=== PATIENT | female | born 1950 | race Caucasian/White ===

== ENCOUNTER → 2017-09-04 08:07 | Outpatient (CLI) | payer MEDICARE ==
[~2017-09-04 08:07] MED LIST: BUPROPION XL300 MG PO; CELEXA40 MG PO; DILAUDID2 MG PO; HYDROCODONE-APA1 TAB PO; LEVOTHYROXINE50 MCG PO; MORPHINE 44 MG/1 M1 IV; PROTONIX40 MG PO; REGLAN10 MG PO; ZANTAC150 MG
[2017-10-02 17:49] VITALS: BMI 34.5
== END | disposition home or self-care (01) ==
LOC: D.OPS 08:07 → D.RAD 10:00
DX: K21.9 Gastro-esophageal reflux disease without esophagitis (principal)

== ENCOUNTER 2017-10-02 12:00 | Day surgery (SDC) | payer MEDICARE ==
[2017-10-01 15:27] LABS: BASOPHILS 0.5 % (0-2); EOSINOPHILS 2.6 % (0-7); HEMATOCRIT 38.7 % (36.0-48.0); HEMOGLOBIN 12.2 g/dL (12-16); IMMATURE GRANULOCYTES 0.3 % (0-5); LYMPHOCYTES 30.1 % (15-50); MCH 25.6 pg (26.0-34.0); MCHC 31.5 g/dL (31.0-37.0); MCV 81.1 fL (80.0-100.0); MEAN PLATELET VOLUME 10.3 fL (7.4-10.4); MONOCYTES 9.1 % (2-11); NEUTROPHILS 57.4 % (40-80); PLATELET COUNT 185 10x3/uL (130-400); RBC 4.77 10x6/uL (4.00-5.40); RDW 21.2 % (11.5-14.5); WBC 6.3 10x3/uL (4.8-10.8)
[2017-10-01 15:41] LABS: CALC OSMOLALITY 279 mosm/kg (275-300); CALCIUM 8.2 mg/dL (8.5-10.1); CARBON DIOXIDE 26.8 mmol/L (21.0-32.0); CHLORIDE - SERUM 106 mmol/L (98-107); CREATININE - SERUM 0.8 mg/dL (0.6-1.3); GLUCOSE 133 mg/dL (74-106); POTASSIUM - SERUM 3.9 mmol/L (3.5-5.1); SODIUM 139 mmol/L (136-145); UREA NITROGEN 12 mg/dL (7-18); eGFR NON AFRICAN AMERICAN 76 mL/min (90-120)
[~2017-10-02] VITALS: Ht 170.2 cm; Wt 100.0 kg
--- NOTE | ~2017-10-02 | OP ---
PATIENT NAME: SHAKIRA MEJIA MEDICAL RECORD: [id number] :54 LOCATION:[facility] ADMISSION DATE: SURGEON: REJI BROOKE MD DATE OF OPERATION: 10/02/2017 PREOPERATIVE DIAGNOSES: 1. Gastroesophageal reflux disease. 2. Hiatal hernia. 3. Diabetes mellitus. 4. Coronary artery disease. 5. Hypothyroidism. 6. Arthritis. POSTOPERATIVE DIAGNOSES: 1. Gastroesophageal reflux disease. 2. Hiatal hernia. 3. Diabetes mellitus. 4. Coronary artery disease. 5. Hypothyroidism. 6. Arthritis. PROCEDURE: Laparoscopic Vasquez with hiatal hernia repair. SURGEON: Reji Brooke MD BOLT MAN: Georgia Aranda APRN REPORT OF PROCEDURE: The patient's abdomen was prepped and draped in sterile fashion. A Veress needle was inserted in the left upper quadrant and the abdomen was insufflated in the midline. A Visiport trocar 11 mm was inserted. We inspected the left upper quadrant and could not see the Veress needle because there was a large amount of fatty adhesions present to the anterior abdominal wall. A 5-mm trocar was placed in the epigastrium and another 5-mm trocar was placed in the right lateral subcostal region. Using these, I was able to take down the adhesions from the anterior abdominal wall and could see the patient did have a hernia present in the left upper quadrant. This appeared to be an old incisional hernia defect that was fat containing. It looked to be about 3 cm in greatest diameter. We got all these adhesions down. I was able to place a 12-mm trocar in the left subcostal region and a final 5-mm trocar in the left lateral abdomen. The left lobe of the liver was then elevated. The stomach was inspected and we could see that the patient did have a hiatal hernia with about 3-4 cm of the stomach projecting up into the thoracic cavity. We started on the lesser curvature of the stomach and took down the lesser omentum using Harmonic scalpel. This was continued up to the right side of the right charles. We then dissected into the thoracic cavity on the edge of the right side of the right charles until we were able to take down the adhesions on this portion of the esophagus. Once we had this completely freed up anteriorly and posteriorly, then we moved to the greater curvature of the stomach and took down the short gastrics using Harmonic scalpel. This was continued up to the left side of the right charles and into the thoracic cavity. Eventually, we were able to dissect out completely and had a 360 degree inspection of the distal esophagus. Once we had the esophagus completely dissected free as possible, then about a centimeter of the esophagus would rest comfortably in the abdominal cavity without tension. The vagus nerves were visualized and appeared to be intact. We then reapproximated the esophageal hiatus with interrupted 0 Polydek times 3. The OPERATIVE REPORT [id number] SHAKIRA MEJIA patient's fundus was then pulled posteriorly for 360-degree posterior wrap and sutured into place with interrupted 0 Polydek times 3 with the top and the bottom suture incorporating a bite of the esophagus. The wrap appeared to be in good place with no signs of bleeding and it did not appear to be too tight. The indwelling orogastric tube was removed easily. We inspected the abdomen and saw no signs of any active bleeding. The liver retractor was then removed, the 12 mm left subcostal trocar site. The incision was then closed with a Jose-Dayana suture passer device. The ports and insufflation were then removed and the wounds were then closed with subcutaneous 5-0 Monocryl. A total of 10 mL of 0.25% Marcaine with epinephrine was infused into the surrounding tissues and the wounds were dressed appropriately. COMPLICATIONS: None. CONDITION: Stable. ANESTHESIA: General endotracheal and local. BLOOD LOSS: Minimal. TRANSINT:[id number] Voice Confirmation ID: [id number] DOCUMENT ID: [id number] REJI BROOKE MD at 1418 CC: OCTAVIO ROGER DO and NIDHI KURTZ DO [id number] DICTATION DATE: 10/02/17 1632 RIBB[facility] WINDER: 10/02/17 1810 [facility] 10/03/17 [facility] [address] [id number]
[~2017-10-02 12:00] MED LIST changes: -DILAUDID2 MG PO; -HYDROCODONE-APA1 TAB PO; -MORPHINE 44 MG/1 M1 IV; -REGLAN10 MG PO
[2017-10-02 13:37] VITALS: BP 104/68; BMI 30.6
[2017-10-02] MEDS ORDERED: DILAUDID2 MG PO (16:24)
[2017-10-02] MEDS ORDERED: REGLAN10 MG PO (16:24)
[2017-10-02 17:41] VITALS: BP 122/70
[2017-10-02 17:49] VITALS: BP 122/70; Ht 170.2 cm; Wt 100.0 kg
[2017-10-02 20:29] VITALS: BP 95/66
[2017-10-03 00:21] VITALS: BP 120/70
[2017-10-03 04:06] VITALS: BP 110/68
[2017-10-03 05:53] LABS: BASOPHILS 0 % (0-2); EOSINOPHILS 0 % (0-7); HEMATOCRIT 38.3 % (36.0-48.0); HEMOGLOBIN 11.8 g/dL (12-16); IMMATURE GRANULOCYTES 0.2 % (0-5); LYMPHOCYTES 15.6 % (15-50); MCH 25.7 pg (26.0-34.0); MCHC 30.8 g/dL (31.0-37.0); MEAN PLATELET VOLUME 10.9 fL (7.4-10.4); MONOCYTES 6.5 % (2-11); NEUTROPHILS 77.7 % (40-80); PLATELET COUNT 199 10x3/uL (130-400); RDW 21.8 % (11.5-14.5)
[2017-10-03 06:05] LABS: MCV 83.3 fL (80.0-100.0); WBC 10.5 10x3/uL (4.8-10.8)
[2017-10-03 06:19] LABS: CALC OSMOLALITY 279 mosm/kg (275-300); CALCIUM 7.7 mg/dL (8.5-10.1); CARBON DIOXIDE 26.4 mmol/L (21.0-32.0); CHLORIDE - SERUM 106 mmol/L (98-107); CREATININE - SERUM 0.8 mg/dL (0.6-1.3); GLUCOSE 136 mg/dL (74-106); POTASSIUM - SERUM 4.4 mmol/L (3.5-5.1); SODIUM 139 mmol/L (136-145); UREA NITROGEN 12 mg/dL (7-18); eGFR NON AFRICAN AMERICAN 76 mL/min (90-120)
[2017-10-03 09:23] VITALS: BP 128/65
[2017-10-03 12:44] VITALS: BP 123/68
[2017-10-03] MEDS ORDERED: MORPHINE 44 MG/1 M1 IV (16:40)
[2017-10-03] MEDS ORDERED: HYDROCODONE-APA1 TAB PO (16:52)
[2017-10-03 17:00] VITALS: BP 131/80
== END 2017-10-03 17:15 | disposition home or self-care (01) ==
LOC: D.MS 12:00 → D.OPS 12:00 → D.MS 17:33 → D.OPS 10-03 17:15
PROVIDERS: Surgery
DX: K21.9 Gastro-esophageal reflux disease without esophagitis (principal); K44.9 Diaphragmatic hernia without obstruction or gangrene; E11.9 Type 2 diabetes mellitus without complications; I25.10 Atherosclerotic heart disease of native coronary artery without angina pectoris; E03.9 Hypothyroidism, unspecified; M19.90 Unspecified osteoarthritis, unspecified site; Z01.812 Encounter for preprocedural laboratory examination

== ENCOUNTER → 2018-01-27 08:41 | Outpatient (CLI) | payer MEDICARE ==
[~2018-01-27] VITALS: Ht 170.2 cm; Wt 83.0 kg
[~2018-01-27 08:41] MED LIST changes: +DILAUDID2 MG PO; +HYDROCODONE-APA1 TAB PO; +MORPHINE 44 MG/1 M1 IV; +REGLAN10 MG PO
[2018-01-27 10:18] VITALS: Ht 170.2 cm; Wt 83.0 kg
== END | disposition home or self-care (01) ==
LOC: D.FANS 08:41
DX: E16.2 Hypoglycemia, unspecified (principal)

== ENCOUNTER → 2018-04-06 09:00 | Outpatient (CLI) | payer MEDICARE ==
[2018-01-27 10:18] VITALS: BMI 28.6
--- NOTE | 2018-04-08 16:39 | ST ---
PATIENT:SHAKIRA MEJIA MEDICAL RECORD: [id number] SEX: F LOCATION:[facility] ORDER #: ADMISSION DATE: 04/06/18 AGE OF PATIENT: 68 REFERRING PHYSICIAN: INTERPRETING PHYSICIAN: BAUDILIO FREEMAN MD DATE OF SERVICE: 04/06/2018 PROCEDURE: Nuclear stress test. INDICATION: Angina, abnormal ECG, hypertension. She was exercised on standard Lexiscan protocol with 33 mCi of sestamibi injected at peak stress, 10 mCi were used previously for rest images. FINDINGS: Gated SPECT reveals an excellent ejection fraction at 70% with good wall motion thickening and brightness throughout the segments. SPECT IMAGING: Cardiolite was used for a myocardial perfusion agent. There is homogeneous uptake throughout all segments at rest and stress with no evidence of inducible ischemia or previous infarction. OVERALL IMPRESSION: This is a normal rest-stress Cardiolite with no evidence of inducible ischemia or previous infarction. A gated SPECT reveals preserved ejection fraction greater than 60%. At this time I would evaluate noncardiac etiology of chest pain. TRANSINT:[id number] Voice Confirmation ID: [id number] DOCUMENT ID: [id number] BAUDILIO FREEMAN MD at 1639 CC: NIDHI KURTZ DO [id number] DICTATION DATE: 04/07/18 1605 [facility] ASSISTANT: 04/08/18 0734 [facility] CLI 04/06/18 [id number] [place] [address]
== END | disposition home or self-care (01) ==
LOC: D.HCCARDIO 04-01 12:30
DX: I20.9 Angina pectoris, unspecified (principal); R94.31 Abnormal electrocardiogram [ECG] [EKG]; I10 Essential (primary) hypertension

== ENCOUNTER → 2018-11-12 09:01 | Outpatient (CLI) | payer MEDICARE ==
[2018-01-27 10:18] VITALS: BMI 28.6
[~2018-11-12 09:01] MED LIST changes: +BAYER CHEWABLE81 MG PO; +MERIBIN5 MG PO; +PEPCID AC20 MG PO; +PROZAC10 MG PO; +ULTRAM50 MG PO; +ZOFRAN4 MG PO
== END | disposition home or self-care (01) ==
LOC: D.RAD 09:01
PROVIDERS: ATTEND Surgery
DX: R11.2 Nausea with vomiting, unspecified (principal)

== ENCOUNTER 2018-11-14 15:37 | Emergency (ER) | payer MEDICARE ==
[~2018-11-14] VITALS: Ht 170.2 cm; Wt 83.6 kg
[~2018-11-14 15:37] MED LIST changes: -BAYER CHEWABLE81 MG PO; -MERIBIN5 MG PO; -PEPCID AC20 MG PO; -PROZAC10 MG PO; -ULTRAM50 MG PO; -ZOFRAN4 MG PO
[2018-11-14 15:43] VITALS: Ht 170.2 cm; Wt 83.6 kg
[2018-11-14] MEDS ORDERED: PROZAC10 MG PO (15:46)
[2018-11-14 16:17] LABS: BASOPHILS 0.2 % (0-2); EOSINOPHILS 1.2 % (0-7); HEMATOCRIT 45.6 % (36.0-48.0); HEMOGLOBIN 15.7 g/dL (12-16); IMMATURE GRANULOCYTES 0.2 % (0-5); LYMPHOCYTES 19.3 % (15-50); MCH 31.7 pg (26.0-34.0); MCHC 34.4 g/dL (31.0-37.0); MCV 92.1 fL (80.0-100.0); MEAN PLATELET VOLUME 10.9 fL (7.4-10.4); MONOCYTES 7.4 % (2-11); NEUTROPHILS 71.7 % (40-80); PLATELET COUNT 221 10x3/uL (130-400); RBC 4.95 10x6/uL (4.00-5.40); RDW 12.7 % (11.5-14.5); WBC 12.1 10x3/uL (4.8-10.8)
[2018-11-14 16:19] LABS: APPEARANCE CLEAR (CLEAR); BILIRUBIN NEGATIVE (NEGATIVE); COLOR YELLOW (YELLOW); GLUCOSE NEGATIVE (NEGATIVE); KETONE NEGATIVE (NEGATIVE); NITRITE NEGATIVE (NEGATIVE); PROTEIN NEGATIVE (NEGATIVE); SPECIFIC GRAVITY 1.025 (1.005-1.020); UROBILINOGEN NORMAL (NORMAL)
[2018-11-14 16:33] LABS: ALBUMIN 3.9 g/dL (3.4-5.0); ANION GAP 12.8 mmol/L (8-16); BILIRUBIN - TOTAL 0.41 mg/dL (0.2-1.3); CARBON DIOXIDE 29.9 mmol/L (21.0-32.0); CREATININE - SERUM 0.9 mg/dL (0.6-1.3); POTASSIUM - SERUM 4.7 mmol/L (3.5-5.1); PROTEIN - SERUM 7.4 g/dL (6.4-8.2)
--- NOTE | 2018-11-14 17:37 | NUR ---
DR. MCCLAIN NOTIFIED AND REVIEWED PT'S BEHAVIOR AND ASSESSMENT RESULTS. PT IS A LOW RISK PER DR. TUCKER. DR. TUCKER STATED TO GIVE RESOURCES TO PT AT TIME OF DISCHARGE. NO FURTHER ORDERS AT THIS TIME. RESOURCES REVIEWED WITH PT AND SHE VERBALIZED UNDERSTANDING.
[2018-11-14] MEDS ORDERED: ZOFRAN4 MG PO (19:05)
[2018-11-14 19:22] VITALS: BP 118/68
[2018-11-20] MEDS ORDERED: MERIBIN5 MG PO (14:42)
[2018-11-20] MEDS ORDERED: BAYER CHEWABLE81 MG PO (14:42)
== END 2018-11-14 19:24 | disposition home or self-care (01) ==
LOC: D.ER 15:37
PROVIDERS: Emergency Medicine
DX: R10.9 Unspecified abdominal pain (principal); K44.9 Diaphragmatic hernia without obstruction or gangrene; R11.2 Nausea with vomiting, unspecified

== ENCOUNTER 2018-11-24 05:43 | Day surgery (SDC) | payer MEDICARE ==
[~2018-11-24] VITALS: Ht 348 cm; Wt 87.5 kg
[~2018-11-24 05:43] MED LIST changes: +BAYER CHEWABLE81 MG PO; +MERIBIN5 MG PO; +PROZAC10 MG PO; +ZOFRAN4 MG PO
[2018-11-24 06:47] LABS: ANION GAP 12.4 mmol/L (8-16); CALCIUM 8.9 mg/dL (8.5-10.1); CARBON DIOXIDE 30.7 mmol/L (21.0-32.0); POTASSIUM - SERUM 4.1 mmol/L (3.5-5.1)
[2018-11-24 06:56] LABS: BASOPHILS 0.4 % (0-2); HEMATOCRIT 45.2 % (36.0-48.0); HEMOGLOBIN 15.5 g/dL (12-16); IMMATURE GRANULOCYTES 0.1 % (0-5); LYMPHOCYTES 35.3 % (15-50); MCH 31.1 pg (26.0-34.0); MCHC 34.3 g/dL (31.0-37.0); MCV 90.8 fL (80.0-100.0); MEAN PLATELET VOLUME 10.9 fL (7.4-10.4); MONOCYTES 7.5 % (2-11); NEUTROPHILS 54.7 % (40-80); PLATELET COUNT 205 10x3/uL (130-400); RBC 4.98 10x6/uL (4.00-5.40); RDW 12.7 % (11.5-14.5); WBC 7.9 10x3/uL (4.8-10.8)
[2018-11-24 08:05] VITALS: BP 137/82; Ht 348 cm; Wt 87.5 kg
[2018-11-24] MEDS ORDERED: ULTRAM50 MG PO (09:32)
[2018-11-24] MEDS ORDERED: PEPCID AC20 MG PO (09:33)
--- NOTE | 2018-11-24 11:07 | NUR ---
1107 O2 SAT AT 97% ON BNC 4L/MIN. PT MORE AWAKE. DECREASED BNC TO 2L/MIN.
--- NOTE | 2018-11-24 14:33 | NUR ---
1129 [facility] 2L TURNED OFF
--- NOTE | 2018-11-24 14:34 | NUR ---
1203 PT C/O PAIN TO FLAVIA SMITH RN AND WAS MEDICATED WITH TRAMADOL. PAIN LEVEL WAS 3 OUT OF 10.
--- NOTE | 2018-11-24 14:35 | NUR ---
1235 PT UP TO BR WITH ASSISTANCE TO VOID BUT WAS NOT ABLE TO VOID. PT RETURNED TO BED WITHOUT ASSISTANCE. INCREASED IV FLUIDS. PT FEELS LIKE SHE IS DEHYDRATED DUE TO NOT DRINKING MUCH YESTERDAY.
--- NOTE | 2018-11-24 14:38 | NUR ---
1330 PT VOIDED WITHOUT DIFFICULTY AFTER GETTING IV FLUIDS AND DRINKING FLUIDS. 1338 IV DC'D. CATHETER TIP INTACT. NO BLEEDING AT SITE. BANDAID APPLIED.
--- NOTE | 2018-12-08 10:07 | OP ---
PATIENT NAME: SHAKIRA MEJIA MEDICAL RECORD: [id number] :54 LOCATION:[facility] ADMISSION DATE: SURGEON: REJI BROOKE MD DATE OF OPERATION: 11/24/2018 PREOPERATIVE DIAGNOSES: 1. Ventral incisional hernia. 2. Nausea and vomiting. 3. Diabetes mellitus. 4. Coronary artery disease with history of myocardial infarction. 5. Hypothyroidism. POSTOPERATIVE DIAGNOSES: 1. Ventral incisional hernia. 2. Nausea and vomiting. 3. Diabetes mellitus. 4. Coronary artery disease with history of myocardial infarction. 5. Hypothyroidism. PROCEDURE: 1. Ventral hernia repair with 6.4 cm Proceed mesh. 2. EGD with biopsy. SURGEON: Reji Brooke MD REPORT OF PROCEDURE: The patient's abdomen was prepped and draped in sterile fashion. The patient had an oblique scar that was quite wide in the left upper quadrant. I went ahead and just excised this scar and came through the subcutaneous tissues using electrocautery. Upon doing this, we encountered a hernia defect, which was fat containing. We freed up the edges of the hernia defect and removed the hernia sac down to the fascia. The hernia defect was 3 cm in greatest diameter. We freed up the fascia above and below and then inserted a 6.4 cm Proceed mesh in an underlay fashion. This was sutured down on all 4 sides using interrupted 0 Prolenes. The wound was then irrigated out with normal saline. We reapproximated the fascia longitudinally over the mesh using running 0 Vicryls. We inspected one last time to assure there was no sign of any bleeding, which there was none. The subcutaneous tissues were reapproximated with interrupted 3-0 Vicryl and the skin was closed with running subcutaneous 5-0 Monocryl. A total of 10 mL of 0.25% Marcaine with epinephrine was infused into the surrounding tissues and the wound was dressed appropriately. We then advanced an Olympus endoscope through the mouth and esophagus. We passed through the stomach and easily into the small bowel. In the second portion of the duodenum, there were no masses or lesions present. As we pulled back, no ulcerations were visible. As we pulled into the stomach, we could see there was some inflammation on the distal aspect of the stomach in the antrum and pyloric region. There was also some bilious material that was present in the stomach. A biopsy was taken of the antrum of the stomach and then sent off for permanent. Retroflexed view showed that the patient had an intact Vasquez wrap, which was tight around the endoscopy. The patient had a lot of retained material in the stomach that did not appear to be food contents, but it was more of a white frothy material. It was layered out across the tissues. I was unsure if this was maybe a preoperative medication given or not. The stomach had no masses, lesions or ulcerations present, but only with evidence of gastritis. We then pulled back into the distal esophagus. There was no sign of any ulcerations or lesions present there. A biopsy was taken on the distal OPERATIVE REPORT [id number] JACKIE,SHAKIRA third of the esophagus and sent off for permanent specimen. At this point, the insufflation was removed. We then slowly pulled the scope back through the esophagus and saw no evidence of any ulcerations, lesions or strictures. COMPLICATIONS: None. CONDITION: Stable. ANESTHESIA: General endotracheal and local. BLOOD LOSS: Minimal. TRANSINT:[id number] Voice Confirmation ID: [id number] DOCUMENT ID: [id number] REJI BROOKE MD at 1007 CC: OCTAVIO ROGER DO [id number] DICTATION DATE: 11/24/18 0938 PUBLIC HEALTH PHYSICIAN: 11/24/18 1030 [facility] 11/24/18 [facility] [address] [place] [address]
== END 2018-11-24 13:54 | disposition home or self-care (01) ==
LOC: D.OPS 05:43 → D.PAN 08:15 → D.OPS 08:15
PROVIDERS: ATTEND Surgery
DX: K43.2 Incisional hernia without obstruction or gangrene (principal); K21.9 Gastro-esophageal reflux disease without esophagitis; E11.9 Type 2 diabetes mellitus without complications; I25.10 Atherosclerotic heart disease of native coronary artery without angina pectoris; E03.9 Hypothyroidism, unspecified

== ENCOUNTER → 2019-06-08 09:18 | Outpatient (CLI) | payer MEDICARE ==
[~2019-06-08 09:18] MED LIST changes: +PEPCID AC20 MG PO; +ULTRAM50 MG PO
--- NOTE | 2019-06-09 13:47 | EC ---
PATIENT:SHAKIRA MEJIA DATE OF SERVICE: 06/08/19 SEX: F MEDICAL RECORD: [id number] DATE OF : 54 LOCATION:[facility] AGE OF PATIENT: 69 ADMISSION DATE: 06/08/19 REFERRING PHYSICIAN: INTERPRETING PHYSICIAN: AMI INFANTE MD ECHOCARDIOGRAM REPORT ECHO CHARGES 4 ECHO COMPLETE Date: 06/08/19 CLINICAL DIAGNOSIS: PALPITATIONS/ARRHYTHMIAS/SVT/ ANGINA/CARTWRIGHT/ABNORMAL EKG/MURMUR ECHOCARDIOGRAPHIC MEASUREMENTS (adult normal given) AC root (d.<3.7cm) 3.3 cm LV Septum d (<1.2 cm> 1.1 cm Valve Excursion 2.0 cm LV Septum (systole) 1.8 cm Left Atria (s.<4.0cm> 4.2 cm LVPW d(<1.2cm) 1.1 cm RV (d.<2.3cm) 2.0 cm LVPW (sytole) 1.9 cm LV diastole(<5.6CM) 4.5 cm MV E-F(>70mm/sec) cm LV systole 2.5 cm LVOT Diameter 1.9 cm MV exc.(>10mm) cm Est.ejection fraction (50-75%) % DOPPLER: LVIT cm/sec A 66.0 cm/sec E 75.0 cm/sec LA cm/sec RVSP 23.0 mmHg LVOT 85.0 cm/sec AOP1/2T m/s Asc. Ao 142 cm/sec RVOT 54.0 cm/sec RA cm/sec PA 98.0 cm/sec AV Gradient Peak 8.0 mmHg AV Mean 4.3 mmHg AV Area 1.8 cm MV Gradient Peak 2.8 mmHg MV Mean 0.82 mmHg MV Area cm COMMENTS: OP - HC Tower Equipment Repairer: 1 YONI VINCENTOE Service Administrator: 3 Dr. Lee TAPE# PACS Pericardial Effusion N DATE OF SERVICE: Adequate 2D echo, color flow imaging, spectral Doppler, and M-Mode No LVH. LV internal dimensions are normal. Wall motion is normal. EF is greater than or equal to 55%. Aortic valve is tricuspid. No evidence of stenosis by Doppler interrogation. Left atrium is mildly dilated at 4.2 cm. Mitral valve shows no prolapse. Mild MR. Right-sided chambers are grossly normal. Trace TR. ECHOCARDIOGRAM REPORT [id number] SHAKIRA MEJIA TRANSINT:[id number] Voice Confirmation ID: [id number] DOCUMENT ID: [id number] AMI INFANTE MD at 1347 CC: [id number] DICTATION DATE: 06/09/19 1035 RADIO STATION MANAGER: 06/09/19 1345 [facility] CLI 06/08/19 [id number] [place] [id number]
== END | disposition home or self-care (01) ==
LOC: D.HCCARDIO 09:18
PROVIDERS: ATTEND Internal Medicine Cardiovascular Disease
DX: R07.89 Other chest pain (principal); R01.1 Cardiac murmur, unspecified

== ENCOUNTER 2019-07-13 11:03 | Outpatient (CLI) | payer MEDICARE ==
[~2019-07-13] VITALS: Ht 348 cm; Wt 87.4 kg
--- NOTE | ~2019-07-13 | HEMODYNAMI ---
PATIENT:SHAKIRA MEJIA MEDICAL RECORD: [id number] : 54 LOCATION:[facility] ADMISSION DATE: 07/13/19 Generatedon:07/13/201912:55 Patient name: SHAKIRA MEJIA Patient #: [id number] SSN: [id number] : 1950 Date of study: 07/13/2019 Page: Of Hemodynamic Procedure Report Patient Data Patient Demographics Procedure consent was obtained First Name: SHAKIRA Gender: Female Last Name: JACKIE : 1950 Patient #: [id number] Age: 69 year(s) Race: SSN: [id number] Additional ID: [id number] Contact details Address: [address] [place] [address] State: [place] City: [place] Zip code: [address] Past Medical History Allergies Allergen Reaction Date Comments Reported Other allergy 07/13/2019 CODEINE Admission Admission Data Admission Date: 07/13/2019 Admission Time: 11:03 Arrival Date: 07/13/2019 Arrival Time: 0:00 Insurance Payor: Medicare [facility] #: [id number] Height (in.): 75.59 BSA: 2.17 (m2) Height (cm.): 192 BMI: 23.6 (kg/m2) Weight (lbs.): 191.8 Weight (kg.): 87 Lab Results Lab Result Date: 07/13/2019 Lab Result Time: 0:00 Biochemistry Name Units Result Min Max BUN mg/dl 17 --(---*)-- 7 18 Creatinine mg/dl 0.9 --(-*--)-- 0.6 1.3 eGFR ml/min 66 *-(----)-- 90 120 NONAFRICAN CBC Name Units Result Min Max Hematocrit % 45.7 --(-*--)-- 42 54 Hemoglobin g/dl 14.7 --(-*--)-- 13.5 17.5 Procedure Procedure Types Cath Procedure Diagnostic Procedure C [facility] w/Coronaries Sedation Charges Moderate Sedation up to 15 minutes PCI Procedure Coronary Stent Coronary Stent Initial Hemochron ACT Test Procedure Description Procedure Date Procedure Date: 07/13/2019 Procedure Start Time: 12:32 Procedure End Time: 12:52 Procedure Staff Name Function Logan Cosme MD Performing Physician Rain Huertas RT Monitor Miriam Wing RN Nurse Holly Michaud RT Scrub Indication CAD Procedure Data Cath Procedure Fluoroscopy Diagnostic fluoroscopy Total fluoroscopy Time: 3.1 time: 3.1 min min Diagnostic fluoroscopy Total fluoroscopy dose: 570 dose: 570 mGy mGy Contrast Material Contrast Material Type Amount (ml) Isovue 300 80 Entry Location Entry Primary Successful Side Size Upsize Upsize Entry Closure Succes sful Closure Location (Fr) 1 (Fr) 2 (Fr) Remarks Device Remarks Femoral Right 5 Fr 6 Fr Exoseal artery Short Estimated blood loss: 10 ml Diagnostic catheters Device Type Used For End Catheter Placement MULTIPACK JL 4.0 5Fr Left Coronary catheter Angiography MULTIPACK 3DRC 5Fr Right Coronary catheter Angiography MULTIPACK Pigtail 5 Fr LV Angiography catheter Procedure Complications No complications Procedure Medications Medication Administration Route Dosage 0.9% NaCl I.V. 100 ml/hr Oxygen etCO2 Nasal cannula 2 l/min Lidocaine 2% added to field 20 Heparin Flush Bag added to field 2 bags (1000units/500ml NS) Versed I.V. 2 mg Fentanyl I.V. 50 mcg Fentanyl I.V. 50 mcg Heparin Bolus I.V. 5000 units Integrilin (Bolus I.V. 7.9 ml 2mg/ml) Plavix P.O. 600 mg Integrilin (Bolus wasted 2.1 ml 2mg/ml) Versed I.V. 2 mg Lopressor I.V. 5 mg Hemodynamics Rest BSA: 2.17 (m2) HGB: 14.7 (g/dl) O2 Consumption: Estimated: 183.62 (ml/min) O2 Co nsumption indexed: Estimated:84.62 (ml/min/m) Heart Rate: 48 (bpm) Pressure Samples Time Site Value (mmHg) Purpose Heart Use Rate(bpm) 12:38 LV 170/7,14 Snapshot 98 Gradients Valve Time Site Site Mean SEP/DFP Peak To Heart Use 1 2 (mmHg) (sec/min) Peak Rate (mmHg) (bpm) Aortic 12:38 LV AO 93 Snapshots Pre Cath Intra NCS Post Cath Vital Signs Time Heart Resp SPO2 etCO2 NIBP (mmHg) Rhythm Pain Sedation Rate (ipm) (%) (mmHg) Status Level (bpm) 12:20:20 78 12 98 24 135/87(121) NSR 0 (11) 10(A) , No pain 12:25:19 84 15 97 21 Measuring NSR 0 (11) 10(A) , No pain 12:25:21 82 15 98 21 155/94(134) NSR 0 (11) 10(A) , No pain 12:29:35 81 15 98 16.5 151/93(130) NSR 0 (11) 10(A) , No pain 12:33:49 84 18 98 10.5 156/91(127) NSR 0 (11) 10(A) , No pain 12:38:03 96 17 97 9 173/97(138) NSR 0 (11) 10(A) , No pain 12:41:44 94 22 96 10.5 138/99(127) NSR 0 (11) 10(A) , No pain 12:45:54 72 18 98 19.5 128/80(102) NSR 0 (11) 10(A) , No pain 12:50:49 76 9 98 37.6 145/88(134) NSR 0 (11) 10(A) , No pain Medications Time Medication Route Dose Verified Delivered Reason Notes Effectiveness by by 12:19:23 0.9% NaCl I.V. 100 Logan Brandta used for ml/hr Ba Maciej procedure MD COPE 12:19:29 Oxygen etCO2 2 Logan Brandta used for Nasal l/min [place] Maciej procedure cannula MD COPE 12:19:34 Lidocaine 2% added 20ml Logan Ford for local to vial [facility] anesthetic field MD LONGORIA 12:19:38 Heparin Flush added 2 Logan Ford used for Bag to bags [facility] procedure (1000units/500ml field MD LONGORIA NS) 12:29:40 Versed I.V. 2 mg Logan Rodriguezyla for sedation St Joel Wing MD RN 12:29:49 Fentanyl I.V. 50 Logan Miriam for sedation mcg St Joel Wing MD RN 12:34:06 Fentanyl I.V. 50 Logan Rodriguezyla for sedation mcg St Joel Wing MD RN 12:40:06 Heparin Bolus I.V. 5000 Logan Miriam for units St Joel Wing anticoagulation RN 12:40:14 Integrilin I.V. 7.9 Logan Miriam for (Bolus 2mg/ml) ml [facility] Joel Wing antiplatelet RN therapy 12:40:25 Plavix P.O. 600 Logan Rodriguezyla for mg [facility] Joel Wing antiplatelet RN therapy 12:40:34 Integrilin wasted 2.1 Logan Brandta for (Bolus 2mg/ml) ml [facility] Joel Wing antiplatelet RN therapy 12:41:41 Versed I.V. 2 mg Logan Miriam for sedation St Joel Wing MD RN 12:43:55 Lopressor I.V. 5 mg Logan Rodriguezyla Per physician St Joel Wing MD employee benefits insurance agent Log Time Note 11:53:29 Informed consent obtained and on chart 11:53:38 Arrival Date: 07/13/2019 12:00:00 AM 11:53:59 Insurance Payor : Medicare 11:55:08 Indication : CAD 11:58:04 Procedure Status Elective Heart Cath (OP). 11:58:37 Patient allergic to Other allergyCODEINE 12:03:59 Lab Result : eGFR NONAFRICAN 66 ml/min 12:03:59 Lab Result : Creatinine 0.9 mg/dl 12:03:59 Lab Result : BUN 17 mg/dl 12:03:59 Lab Result : Hematocrit 45.7 % 12:03:59 Lab Result : Hemoglobin 14.7 g/dl 12:04:41 Patient Weight : 191.8 lbs 12:05:18 Miriam Wing RN sent for patient. Start room use. 12:05:21 Time tracking: Regular hours (M-F 7:00 - 5:00) 12:05:29 Plan of Care:Hemodynamics will remain stable., Cardiac rhythm will remain stable., Comfort level will be maintained., Respiratory function will remain adequate., Patient/ family verbilizes understanding of procedure., Procedure tolerated without complication., Recovers from procedure without complications.. 12:05:44 Lab results completed and on chart. 12:06:14 Stress Test: yes; abnormal INFERIOR WALL 12:10:19 Patient received from Pre/Post Procedure Room to [facility] 2 Alert and oriented. Tansferred to table in Supine position. 12:10:21 Warm blankets applied, and luis armando hugger turned on for patient comfort. 12::23 Correct patient and procedure confirmed by team. 12:10:40 ECG and BP/O2 sat monitors applied to patient. 12:19:15 Vital chart was started 12::23 0.9% NaCl 100 ml/hr I.V. was administered by Miriam Wing RN; used for procedure; Verbal order read back and verified. 12:19:29 Oxygen 2 l/min etCO2 Nasal cannula was administered by Miriam Wing RN ; used for procedure; Verbal order read back and verified. 12:19:34 Lidocaine 2% 20ml vial added to field was administered by Logan Cosme MD; for local anesthetic; Verbal order read back and verified. 12:19:38 Heparin Flush Bag (1000units/500ml NS) 2 bags added to field was administered by Logan Cosme MD; used for procedure; Verbal order read back and verified. 12:21:29 Baseline sample Acquired. 12::38 Rhythm: sinus rhythm 12:21:42 Full Disclosure recording started 12:22:11 H&P Date Dictated: 07/13/2019 H&P Addendum completed by physician on day of procedure. (MUST COMPLETE FOR ALL OUTPATIENTS), New H&P dictated by physician.. 12:22:19 Is the patient allergic to Iodine/contrast media? No. 12:22:22 Was the patient premedicated? Yes 12:22:26 Is patient on blood thinner?No 12:22:30 Patient diabetic? No. 12:22:37 ----Pre-sedation anethsthesia assessment.---- 12:22:43 Previous problem with sedation/anesthesia? No ? 12:22:46 Snore? Yes 12:22:48 Sleep apnea? No 12:22:51 Deviated septum? Unknown 12:22:53 Opens mouth fully? Yes 12:22:55 Sticks out tongue? Yes 12:22:59 Airway obstruction? No ? 12:23:03 Dentures? No ? 12:23:09 - 12:23:13 Pre procedure: right dorsailis pedis pulse 1+ Palpable, but thready & weak; easily obliterated 12:23:23 IV patent on arrival in left forearm with 0.9% NaCl at [facility]. 12:23:35 Right groin area was prepped with chlora-prep and draped in sterile fashion 12:23:36 Alarms reviewed by R. N. 12:23:37 Sharps counted by scrub and verified by R.N. 12:23:47 Use device set Femoral Dx 12:23:49 ACIST Syringe (37007) opened to sterile field. 12:23:50 Bag Decanter (2002S) opened to sterile field. 12:23:51 Medline Cath Pack ([id number]) opened to sterile field. 12:23:52 ACIST Hand Control (47865) opened to sterile field. 12:23:53 ACIST Manifold (41154) opened to sterile field. 12:23:55 DIAGNOSTIC Multipack 5Fr catheter set ([id number]) opened to sterile field. 12:23:56 Tegaderm 4 x 4 (1626W) opened to sterile field. 12:23:58 SHEATH 5FR Kirkman (OTM071) opened to sterile field. 12:23:59 EMERALD Guide Wire (838-772) opened to sterile field. 12:28:12 Risk of Mortality: 0.1 12:28:15 Risk of blood transfusion: 0.1 12:28:20 Risk of ENMANUEL: 0.2 12:28:27 Physician arrived 12::28 --------ALL STOP TIME OUT------ 12:28:29 Final Timeout: patient, procedure, and site verified with staff and physician. All members of the team are in agreement. 12:28:36 Right groin site verified by team. 12:28:41 Fire Safety Assessment: A--An alcohol-based skin anteseptic being used preoperatively., C--Open oxygen or nitrous oxide is being used., D--An ESU, laser, or fiber-optic light is being used. 12:28:47 Physical assessment completed. ASA score P 2 - A patient with mild systemic disease as per Logan Cosme MD. 12:28:52 2) 60-89 Mildly reduced kidney function, and other findings (as for stage 1) point to kidney disease. 12:28:58 Maximum allowable contrast dose (3.7 X eGFR X 0.75)183 ml. 12:29:08 Sedation plan: IV Moderate Sedation Medication:Versed, Fentanyl 12::40 Versed 2 mg I.V. was administered by Miriam Wing RN; for sedation; Verbal order read back and verified. 12::49 Fentanyl 50 mcg I.V. was administered by Miriam Wing RN; for sedation ; Verbal order read back and verified. 12:30:53 Patient Height : 75.59 inches 12:32:05 Procedure started. 12:32:28 RAIN NOTIFIED PATIENT PROCEDURE STARTED. 12:32:34 Local anesthetic to right femoral artery with Lidocaine 2% by Logan Maldonado MD.INITIAL ACCESS ONLY 12:33:59 A 5 Fr sheath was inserted into the Right Femoral artery 12:34:06 Fentanyl 50 mcg I.V. was administered by Miriam Wing RN; for sedation ; Verbal order read back and verified. 12:34:33 A MULTIPACK JL 4.0 5Fr catheter was advanced over the wire and used for Left Coronary Angiography. 12:35:05 LCA angiography performed. 12:35:13 Injector settings: Ml/sec: 3, Volume: 6, 12:35:51 Zero performed for pressure channel P1 12:36:00 Catheter removed. 12:36:08 A MULTIPACK 3DRC 5Fr catheter was advanced over the wire and used for Right Coronary Angiography. 12:36:27 Injector settings: Ml/sec: 3, Volume: 6, 12:36:49 RCA angiography performed. 12:36:55 Catheter removed. 12:37:05 A MULTIPACK Pigtail 5 Fr catheter was advanced over the wire and used for LV Angiography. 12:37:23 Injector settings: Ml/sec: 5, Volume: 15, 12:37:27 LV gram done using DENG 12:38:12 LV hemodynamics recorded. 12:38:24 EF : 55 % 12:38:33 Catheter removed. 12:38:53 SHEATH 6FR Kirkman (MHC706) opened to sterile field. 12:39:08 INFLATOR Merit BasixCompak (AO8870) opened to sterile field. 12:39:17 WHISPER 300cm guide wire ([id number]) opened to sterile field. 12:39:27 GUIDE 6FR XBLAD 3.5 catheter ([id number]) opened to sterile field. 12:39:34 Proceeding to intervention. 12:39:50 Sheath upsized to a 6 Fr Short. 12:40:03 6 Fr XBLAD3.5 guide catheter was inserted over the wire 12:40:06 Heparin Bolus 5000 units I.V. was administered by Miriam Wing RN; for anticoagulation; Verbal order read back and verified. 12:40:12 WHISPER 300 wire advanced. 12:40:14 Integrilin (Bolus 2mg/ml) 7.9 ml I.V. was administered by Miriam Wing RN; for antiplatelet therapy; Verbal order read back and verified. 12:40:25 Plavix 600 mg P.O. was administered by Miriam Wing RN; for antiplatelet therapy; Verbal order read back and verified. 12:40:34 Integrilin (Bolus 2mg/ml) 2.1 ml wasted was administered by Miriam Wing RN; for antiplatelet therapy; Verbal order read back and verified. 12:41:13 ACC Pre-intervention SHILA Flow is 3. 12:41:41 Versed 2 mg I.V. was administered by Miriam Wing RN; for sedation; Verbal order read back and verified. 12:41:51 Pre PCI Site: [place] mLAD has 80% stenosis. 12:43:13 Wire advanced across lesion. 12:43:55 Lopressor 5 mg I.V. was administered by Miriam Wing RN; Per physician ; Verbal order read back and verified. 12:46:11 Place stent Inflation Number: 1 A JERROD RX 3.0 x 15 stent ([id number]) was prepped and advanced across the Mid LAD . The stent was deployed at 14 PELON for 0:33 (min:sec) . 12:46:36 Inflation number: 2 The stent balloon was then re-inflated across the Mid LAD to 16 PELON for 0:05 (min:sec) . 12:47:11 Stent balloon re-inserted over wire. 12:47:15 ACC Post-intervention SHILA Flow is 3. 12:47:24 Post PCI Site: [place] mLAD has 0% stenosis. 12:47:27 EXOSEAL 6Fr (EX600) opened to sterile field. 12:47:35 Wire removed. 12:47:36 Guide catheter removed. 12:47:47 Contrast amount:Isovue 300 80ml. 12:48:01 Sheath removed intact; hemostasis achieved with Exoseal to the Right Femoral artery. 12:48:06 Procedure ended.(Physican Out) 12:48:29 Fluoroscopy time 03.10 minutes. 12:48:40 Fluoroscopy dose: 570 mGy 12:48:40 Flurop Dose total: 570 12:48:54 Dose Area Product 38691 mGy/cm. 12:48:58 Maximum allowable dose exceeded? No. 12:48:59 Sharps counted by scrub and verified by R.N. 12:49:14 Insertion/operative site no bleeding no hematoma. 12:49:15 Insertion/operative site no bleeding no hematoma. 12:49:25 Post-op/insertion site Right Femoral artery dressed using a 4 x 4 and Tegaderm. 12:49:30 Post right femoral artery:stable 12:49:34 Post Procedure Pulses reassessed and unchanged 12:49:38 Post-procedure physical assessment completed. ASA score P 2 - A patient with mild systemic disease as per Logan Cosme MD. 12:49:42 Post procedure rhythm: unchanged. 12:49:46 Estimated blood loss: 10 ml 12:49:48 Post procedure instruction explained to patient.Patient verbalizes understanding. 12:49:49 Patient needs reinforcement of post procedure teaching. 12:50:16 ACT drawn and resulted at 187 seconds. (normal therapeutic range 180-24 0 seconds). 12:51:05 Procedure type changed to Cath procedure, Diagnostic procedure, C, C w/Coronaries, Sedation Charges, Moderate Sedation up to 15 minutes, PCI procedure, Coronary Stent, Coronary Stent Initial, Hemochron ACT Test 12:51:07 Procedure and supply charges have been captured, reviewed, submitted an d are correct. 12:51:48 Procedure Complication : No complications 12:51:52 Vital chart was stopped 12:51:59 [facility] Findings: MVD- PCI performed (see procedure note) 12:52:01 Operative report dictated upon procedure completion. 12:52:02 See physician's report for complete and final results. 12:52:05 Report given to Pre/Post Procedure Room. 12:52:11 Patient transfered to Pre/Post Procedure Room with Stretcher. 12:52:19 Procedure ended. 12:52:19 Full Disclosure recording stopped 12:52:35 ACC-PCI Only Patient was given prescriptions, or instructed by Logan Cosme MD to start/continue the following medications upon discharge: Plavix 12:52:37 End room use (Document Last) Intervention Summary Intervention Notes Time ActionType Lesion and Equipment Used Action# Pressure Duration Attributes 12:46:11 Place stent Mid LAD JERROD RX 3.0 x 1 14 00:33 15 stent ([id number]) 12:46:36 Reinflate Mid LAD JERROD RX 3.0 x 2 16 00:05 stent 15 stent balloon ([id number]) Device Usage Item Name Manufacture Quantity Catalog Hospital Part [facility] Lot# / Number Charge Number Stock Stock Serial# Code ACIST Syringe Acist 1 63811 175491 355947 582168 20 (82883) Medical Systems Inc Bag Decanter Microtek 1 2001S 060204 32999 165094 5 (2001S) Medical Inc. Medline Cath Medline 1 [id number] 065820 60304 770816 5 Pack ([id number]) ACIST Hand Acist 1 07899 058167 525191 582170 5 Control Medical (63735) Systems Inc ACIST Manifold Acist 1 96895 547898 781986 552529 5 (17437) Medical Systems Inc DIAGNOSTIC Cardinal 1 [id number] 237237 43881 965319 30 Multipack 5Fr Health catheter set (ZX1864) Tegaderm 4 x 4 3M 1 1626W 184597 939233 115033 5 (1626W) SHEATH 5FR Terumo 1 JQI646 180920 455995 266119 5 Kirkman (NOX362) EMERALD Guide Cardinal 1 502-455 200082 180415 934950 5 Wire (502-455) Health MULTIPACK JL Cardinal 1 914221 5 4.0 5Fr Health catheter MULTIPACK 3DRC Cardinal 1 390883 5 5Fr catheter Health MULTIPACK Cardinal 1 486615 5 Pigtail 5 Fr Health catheter SHEATH 6FR Terumo 1 BBE787 288447 188844 194798 40 Kirkman (XET998) INFLATOR Merit Merit 1 BE9629 894464 449784 725422 15 CenticemoOffiSync (CF9499) WHISPER 300cm Chauhan 1 [id number] 333536 284024 139710 5 guide wire Vascular ([id number]) GUIDE 6FR Cardinal 1 [id number] 618914 131975 202094 10 XBLAD 3.5 Health catheter (17070758) JERROD RX 3.0 x Medtronic 1 [id number] 415431 9420602 868240 5 [id number] 15 stent ([id number]) EXOSEAL 6Fr Cardinal 1 EX600 890201 173257 800861 10 (EX600) Health Signature Audit [place] Stage Time Signature Unsigned Intra-Procedure 07/13/2019 Rain 12:52:59 PM Aleksandar RT(R) (CV) Intra-Procedure 07/13/2019 Miriam Wing 12:54:54 PM RN Intra-Procedure 07/13/2019 Logan Crabtree 12:55:22 PM Joel LONGORIA Signatures Performing Physician : Signature : Logan Cosme MD Date : Time : Monitor : Rain Signature : Aleksandar RT Date : Time : Nurse : Miriam Wing RN Signature : Date : Time : [facility] [address], [place] [address]
[2019-07-13] MEDS ORDERED: SENNA8.8 MG/5 M PO (11:26)
[2019-07-13] MEDS ORDERED: MERIBIN5 MG PO (11:27)
[2019-07-13] MEDS ORDERED: B-12 DOTS500 MCG PO (11:27)
[2019-07-13 11:45] LABS: BASOPHILS 0.5 % (0-2); EOSINOPHILS 1.9 % (0-7); HEMATOCRIT 45.7 % (36.0-48.0); HEMOGLOBIN 14.7 g/dL (12-16); IMMATURE GRANULOCYTES 0.1 % (0-5); LYMPHOCYTES 35.2 % (15-50); MCH 30.6 pg (26.0-34.0); MCHC 32.2 g/dL (31.0-37.0); MCV 95.2 fL (80.0-100.0); MEAN PLATELET VOLUME 10.8 fL (7.4-10.4); MONOCYTES 8.2 % (2-11); NEUTROPHILS 54.1 % (40-80); PLATELET COUNT 205 10x3/uL (130-400); WBC 7.3 10x3/uL (4.8-10.8)
[2019-07-13 11:47] VITALS: BP 133/74; Ht 348 cm; Wt 87.4 kg
[2019-07-13 11:59] LABS: ANION GAP 12.3 mmol/L (8-16); CALCIUM 8.5 mg/dL (8.5-10.1); CARBON DIOXIDE 26.7 mmol/L (21.0-32.0); CHOL - HDL RATIO 5.4 ratio (2.3-4.1); CREATININE - SERUM 0.9 mg/dL (0.6-1.3); LDL-HDL RATIO 3.8 ratio (1.5-3.5)
[2019-07-13] MEDS ORDERED: PLAVIX75 MG PO (12:59)
--- NOTE | 2019-07-13 13:05 | NUR ---
PT RECEIVED VIA STRETCHER FROM CONGRESSIONAL ASSISTANT FOR RECOVERY. PT SLEEPY BUT VERBALLY AROUSABLE. PT DENIES PAIN OR DISCOMFORT. IV PATENT INFUSING VIA ORDERS TO L ARM. PT PLACED ON CARDIAC MONITORS AND O2 VIA NC AT 2L. HR NSR RATE 69, BP 134/83, RR 11, SAT 95. 6FR EXOCELE TO R GROIN, DRESSING CDI NO S/S HEMATOMA OR BLEEDING NOTED. LEG PINK AND WARM, PEDAL PULSES PALPABLE. PT INSTRUCTED TO KEEP HEAD ON PILLOW AND LEG STRAIGHT, SHE VERBALIZED UNDERSTANDING. CALL LIGHT IN REACH. PT DENIES NEEDS AT THIS TIME.
--- NOTE | 2019-07-13 13:30 | NUR ---
PT RESTING W/O COMPLAINTS. R GROIN SOFT, DRESSING CDI NO S/S HEMATOMA NOTED. HR 64, BP 123/74, RR 11. PT'S CALLED AND GIVEN UPDATE AND DISCHARGE TIME PER PT REQUEST. CALL LIGHT IN REACH. 600 PLAVIX GIVEN PO W SIPS OF WATER.
--- NOTE | 2019-07-13 14:15 | NUR ---
PT CONTINUES SLEEPING, DENIES PAIN OR DISCOMFORT. HR 65, BP 121/75, RR 12. IV PATENT INFUSING ORDERED. R GROIN SOFT, DRESSING CDI NO S/S HEMATOMA. CALL LIGHT IN REACH
--- NOTE | 2019-07-13 14:45 | NUR ---
PT RESTING COMFORTABLY, DENIES PAIN OR DISCOMFORT. R GROIN SOFT, DRESSING REMAINS CDI NO S/S HEMATOMA NOTED. VSS. CALL LIGHT IN REACH
--- NOTE | 2019-07-13 15:17 | NUR ---
R GROIN SOFT, DRESSING REMAINS CDI NO S/S HEMATOMA OR BLEEDING NOTED. CALL LIGHT IN REACH
--- NOTE | 2019-07-13 15:45 | NUR ---
R GROIN SOFT, DRESSING NO S/S HEMATOMA NOTED. HOB ELEVATED, SANDWICH AND DRINK SERVED. VSS. PT DENIES PAIN OR OTHER NEEDS. CALL LIGHT IN REACH
--- NOTE | 2019-07-13 16:10 | OP ---
PATIENT NAME: SHAKIRA MEJIA MEDICAL RECORD: [id number] :54 LOCATION:[facility] ADMISSION DATE: SURGEON: AMI INFANTE MD DATE OF OPERATION: 07/13/2019 PROCEDURE: Left heart catheterization, selective coronary angiography plus PTCA stent report, right femoral artery approach. CATHETERS: A 5-Filipino sheath, 5/4 left and right Nelly, 5/4 pig. The procedure was well tolerated. The patient returned to the pappas, sheath removed. ExoSeal device placed. FINDINGS: Left ventriculography in 30-degree DENG view: Normal wall motion. Normal systolic function. CORONARY ANATOMY: LEFT MAIN: Left main is free of disease. LAD: Has 80% stenosis just distal to the previously placed stent, this is right at the takeoff of the first septal, correlating nicely with nuclear study. CIRCUMFLEX: Somewhat codominant system, free of disease. RIGHT CORONARY ARTERY: Free of disease. PLAN: Intervention to LAD momentarily. DESCRIPTION OF PROCEDURE: A 5-Filipino sheath was exchanged for a 6-Filipino sheath. XB LAD guiding catheter provided good guide catheter support followed 300 cm Whisper wire was placed across the tightly occluded LAD down to distal portion of vessel. Stent deployed was a 3.0 x 15 mm Alberto drug-eluting stent up to 14 atmospheres for 45 seconds. Final angiography shows excellent resolution of 80% stenosis, no significant residual. SHILA flow was 3 throughout the procedure. Heparin and Integrilin were used during the case. Plavix was loaded in the lab. Sheath was closed with ExoSeal device. TRANSINT:[id number] Voice Confirmation ID: [id number] DOCUMENT ID: [id number] AMI INFANTE MD at 1610 CC: [id number] DICTATION DATE: 07/13/19 1258 SHOWROOM MANAGER: 07/13/19 1357 [facility] [address] [place] [address]
--- NOTE | 2019-07-13 16:14 | NUR ---
PT SITTING UP IN BED WATCHING TV, STATES SHE FEELS GREAT. R GROIN SOFT, DRESSING REMAINS CDI NO S/S HEMATOMA OR BLEEDING NOTED. VSS. PT TOLERATED LUNCH W/O NAUSEA. CALL LIGHT IN REACH
--- NOTE | 2019-07-13 16:36 | NUR ---
DISCHARGE INSTRUCTIONS REVIEWED W PT, SHE VERBALIZED UNDERSTANDING. REVIEWED MEDICATIONS AND IMPORTANCE OF STARTING THEM TOMORROW. IV REMOVED W CATH INTACT. MONITORS REMOVED. R GROIN SOFT, DRESSING CDI NO S/S HEMATOMA OR BLEEDING NOTED. PT UP TO DRESS FOR DISCHARGE.
--- NOTE | 2019-07-13 16:40 | NUR ---
DR INFANTE AT , DISCUSSING PROCEDURE RESULTS AND PLAN OF CARE. NO NEW ORDERS RECEIVED.
--- NOTE | 2019-07-13 16:52 | NUR ---
PT DISCHARGED VIA WC TO WAITING IN PRIVATE VEHICLE. PT HAD ALL BELONGINGS AND DISCHARGE PAPERWORK IN HAND
== END 2019-07-13 16:50 | disposition home or self-care (01) ==
LOC: D.CATH 11:03
PROVIDERS: ATTEND Internal Medicine Interventional Cardiology
DX: I25.119 Atherosclerotic heart disease of native coronary artery with unspecified angina pectoris (principal); I47.1 Supraventricular tachycardia; E11.9 Type 2 diabetes mellitus without complications
CPT/HCPCS: 93458; C9600